=== PATIENT | male | born 1960 | race Caucasian/White ===

== ENCOUNTER 2018-05-25 07:22 | Day surgery (SDC) | payer OTHER ==
[~2018-05-25] VITALS: Ht 172.7 cm; Wt 113.6 kg
[2018-05-25] VITALS (7 sets, daily range): BP systolic 116–149; BP diastolic 49–67; Ht 172.7 cm; Wt 113.6 kg
--- NOTE | ~2018-05-25 | HP ---
PATIENT: KIANA KUNZ MEDICAL RECORD: [id number] ACCOUNT: [id number] LOCATION:[id number] : 62 ADMISSION DATE: 05/25/18 PCP: HAYDEN DONG MD HISTORY AND PHYSICAL EXAMINATION PREOPERATIVE HISTORY AND PHYSICAL HISTORY OF PRESENT ILLNESS: Mr. Kunz is 57 years old. He has been having recurrent infections in the right submandibular gland for years. He has been set up for surgery elsewhere previously, but did not have that done. He is being admitted for a right submandibular gland excision. PAST MEDICAL HISTORY: Includes diabetes, hypertension, and coronary artery disease. PAST SURGICAL HISTORY: Includes CABG, stents, laparoscopic cholecystectomy. CURRENT MEDICATIONS: Citalopram, gabapentin, metformin, metoprolol, Singulair, potassium, ramipril, triamterene, Farxiga. Aspirin has been held. ALLERGIES: PHENOBARBITAL AND PENICILLIN. PHYSICAL EXAMINATION: GENERAL: Healthy-appearing, developmentally normal. FACE: Normal, symmetric, no lesions. EYES: Sclerae and conjunctivae are normal. EARS: Both ears have small central TM perforations, clean, dry, stable. NOSE: No mass, polyps or drainage. ORAL CAVITY AND OROPHARYNX: Tongue protrudes in midline. Pharynx normal. NECK: No masses, no adenopathy. Slight enlargement of the right submandibular gland. Floor of mouth is normal. CT shows a 3 mm stone in the proximal duct. NECK: No masses, no adenopathy. CHEST: Clear. CARDIOVASCULAR: Regular rate and rhythm, no murmur. EXTREMITIES: Normal. IMPRESSION: Chronic right submandibular sialadenitis and sialolithiasis. PLAN: Right submandibular gland excision. TRANSINT:[id number] Voice Confirmation ID: [id number] DOCUMENT ID: [id number] TRACY LYNN MD at 1814 CC: [id number] DICTATION DATE: 05/21/18 1402 PROGRAMS ASSISTANT: 05/21/18 14[id number] [place] [address]
--- NOTE | ~2018-05-25 | OP ---
PATIENT NAME: KIANA ACOSTA MEDICAL RECORD: [id number] :62 LOCATION: D.2224 ADMISSION DATE: SURGEON: GOPAL CONNER MD DATE OF OPERATION: 05/25/2018 PREOPERATIVE DIAGNOSES: Right submandibular sialadenitis and right submandibular sialolithiasis. POSTOPERATIVE DIAGNOSES: Right submandibular sialadenitis and right submandibular sialolithiasis. PROCEDURE: Right submandibular gland excision. SURGEON: Gopal Conner MD ANESTHESIA: General orotracheal. COMPLICATIONS: None. DISPOSITION: Recovery, stable. SPECIMENS: A single J-P through a separate stab incision in the neck. DESCRIPTION OF PROCEDURE: He was brought to the operating room, placed in the supine position, and sedated and intubated by anesthesia. Head was turned to the left. Right neck was prepped and draped in the usual sterile fashion. The area of incision over 3 cm below the edge of the mandible was injected with 1 cc of 1% lidocaine with 1:100,000 epinephrine. A horizontal incision was made through the skin. This was taken down the platysma. The incision was stepped down lower in the platysma and the platysma was divided with cautery and then a flap was elevated superiorly, exposing the most inferior portion of the submandibular gland. This was then dissected posteriorly and anteriorly and then blunt dissection exposed the gland. Marginal branch of the facial nerve was identified and it was rolled superiorly as the fascia was dissected off of the gland superiorly. I then dissected inferiorly, exposing the posterior belly of the digastric and the anterior belly of the digastric. The gland was lifted laterally. The facial artery was exposed posteriorly. This was divided and tied with 2-0 ties to free up the posterior gland. The [place] was then retracted anteriorly to expose the floor of the mouth. Then, the gland was dissected off of the inferior portion of the mandible to expose lingual nerve and submandibular ganglion on the duct. This was all dissected free. Some veins were ligated. The submandibular gland was divided right above the submandibular ganglion, which was tied with a 2-0 silk tie, allowing the lingual nerve to retract superiorly. Then, the duct was carefully examined and no evidence of a stone in the duct. It was divided and the gland was removed. This was sent for specimen. The area was carefully inspected. It was irrigated, was completely clean and dry. A J-P drain was placed through a separate stab incision inferior to the wound. The platysma layer was closed with interrupted 3-0 Vicryl. The skin was closed with running subcuticular 5-0 Prolene. Steri-Strips and Mastisol were applied. He was awakened, extubated, and transported to recovery in good condition. No complications. TRANSINT:[id number] Voice Confirmation ID: [id number] DOCUMENT ID: [id number] OPERATIVE REPORT [id number] KIANA ACOSTA, GOPAL MCNAIR at 1217 CC: [id number] DICTATION DATE: 05/25/18 1446 HAND I THERMAL CUTTER: 05/25/[address] [facility] [address] [place] [address]
[~2018-05-25 07:22] MED LIST: ALTACE10 MG PO; ASPIRIN EC325 M1 PO; CLARITIN 10 MG10 MG PO; CO Q-1030 MG; DOXYCYCLINE HY100 M2 PO; GLUCOPHAGE500 MG PO; K-DUR20 MEQ PO; LASIX20 MG PO; LIPITOR20 MG PO; LOPRESSOR50 MG PO; MULTI-DAY VITAM1 TAB; NORCO 10/325 TA1 TA1 PO; PLAVIX75 MG PO; SINGULAIR10 MG; TOPROL XL50 MG PO; WELLBUTRIN SR150 MG
[2018-05-25 07:57] LABS: CALC OSMOLALITY 281 mosm/kg (275-300); CALCIUM 8.5 mg/dL (8.5-10.1); CARBON DIOXIDE 25.8 mmol/L (21.0-32.0); CHLORIDE - SERUM 102 mmol/L (98-107); CREATININE - SERUM 0.7 mg/dL (0.6-1.3); GLUCOSE 157 mg/dL (74-106); POTASSIUM - SERUM 3.4 mmol/L (3.5-5.1); SODIUM 139 mmol/L (136-145); UREA NITROGEN 15 mg/dL (7-18); eGFR NON AFRICAN AMERICAN > 90 mL/min (90-120)
[2018-05-25 08:12] LABS: HEMOGLOBIN 14.2 g/dL (13.5-17.5); MCH 28.4 pg (26.0-34.0); RDW 15.6 % (11.5-14.5); WBC 4.4 10x3/uL (4.8-10.8)
[2018-05-25 08:13] LABS: PLATELET COUNT 40 10x3/uL (130-400)
[2018-05-25] MEDS ORDERED: FARXIGA10 MG PO (08:43)
[2018-05-25] MEDS ORDERED: HYDROCHLOROTHIA25 MG (08:45)
[2018-05-25] MEDS ORDERED: LEXAPRO10 MG PO (08:45)
[2018-05-25] MEDS ORDERED: NEURONTIN 300300 MG PO (08:46)
[2018-05-25] MEDS ORDERED: REQUIP1 MG PO (09:26)
[2018-05-25 16:58] LABS: BASOPHILS 0.2 % (0-2); EOSINOPHILS 1.5 % (0-7); HEMATOCRIT 42.1 % (42.0-54.0); IMMATURE GRANULOCYTES 0.4 % (0-5); LYMPHOCYTES 8.6 % (15-50); MCH 28.6 pg (26.0-34.0); MCHC 33.3 g/dL (31.0-37.0); MCV 86.1 fL (80.0-100.0); MONOCYTES 7.5 % (2-11); NEUTROPHILS 81.8 % (40-80); RBC 4.89 10x6/uL (4.20-6.10); RDW 15.5 % (11.5-14.5); WBC 5.2 10x3/uL (4.8-10.8)
[2018-05-25 17:40] LABS: PLATELET COUNT 40 10x3/uL (130-400)
[2018-05-26 00:52] VITALS: BP 115/61
[2018-05-26 05:57] VITALS: BP 134/52
[2018-05-26 08:15] VITALS: BP 186/99
[2018-05-26 08:46] VITALS: BP 135/60
[2018-05-26] MEDS ORDERED: KEFLEX500 MG PO (12:15)
[2018-05-26] MEDS ORDERED: HYDROCODON-ACE1 EAC7 PO (12:43)
[2018-05-26 13:20] LABS: BASOPHILS 0.2 % (0-2); EOSINOPHILS 2.4 % (0-7); HEMATOCRIT 41.6 % (42.0-54.0); HEMOGLOBIN 13.8 g/dL (13.5-17.5); IMMATURE GRANULOCYTES 0.4 % (0-5); LYMPHOCYTES 13.7 % (15-50); MCH 28.8 pg (26.0-34.0); MCHC 33.2 g/dL (31.0-37.0); MCV 86.8 fL (80.0-100.0); MONOCYTES 10.4 % (2-11); NEUTROPHILS 72.9 % (40-80); RBC 4.79 10x6/uL (4.20-6.10); RDW 15.8 % (11.5-14.5); WBC 4.6 10x3/uL (4.8-10.8)
[2018-05-26 13:25] VITALS: BP 156/85
[2018-05-26 13:47] LABS: PLATELET COUNT 45 10x3/uL (130-400)
== END 2018-05-26 13:25 | disposition home or self-care (01) ==
LOC: D.OPS 07:22 → D.PAN 09:45 → D.OPS 12:15 → D.PAN 12:15 → D.MS 15:25 → D.OPS 05-26 13:25
PROVIDERS: Anesthesiology; Legal Medicine
DX: K11.20 Sialoadenitis, unspecified (principal); K11.5 Sialolithiasis; E11.9 Type 2 diabetes mellitus without complications; I10 Essential (primary) hypertension; I25.10 Atherosclerotic heart disease of native coronary artery without angina pectoris; Z95.1 Presence of aortocoronary bypass graft; Z95.5 Presence of coronary angioplasty implant and graft; Z79.84 Long term (current) use of oral hypoglycemic drugs; Z79.82 Long term (current) use of aspirin; Z79.899 Other long term (current) drug therapy; Z88.0 Allergy status to penicillin; Z88.8 Allergy status to other drugs, medicaments and biological substances

== ENCOUNTER → 2018-12-14 08:19 | Outpatient (CLI) | payer OTHER ==
[2018-05-25 16:52] VITALS: BMI 38.1
[~2018-12-14 08:19] MED LIST changes: +FARXIGA10 MG PO; +HYDROCHLOROTHIA25 MG; +HYDROCODON-ACE1 EAC7 PO; +KEFLEX500 MG PO; +LEXAPRO10 MG PO; +NEURONTIN 300300 MG PO; +REQUIP1 MG PO
== END | disposition home or self-care (01) ==
LOC: D.NM 08:19
PROVIDERS: ATTEND Internal Medicine Cardiovascular Disease
DX: I25.10 Atherosclerotic heart disease of native coronary artery without angina pectoris (principal)

== ENCOUNTER 2018-12-17 07:17 | Outpatient (CLI) | payer OTHER ==
[~2018-12-17] VITALS: Ht 172.7 cm; Wt 125.5 kg
[2018-12-17 08:10] VITALS: BP 137/56; Ht 172.7 cm; Wt 125.5 kg
[2018-12-17 08:10] LABS: HEMATOCRIT 27.3 % (42.0-54.0); HEMOGLOBIN 8.3 g/dL (13.5-17.5); MCH 24.3 pg (26.0-34.0); MCHC 30.4 g/dL (31.0-37.0); MCV 79.8 fL (80.0-100.0); PLATELET COUNT 52 10x3/uL (130-400); RBC 3.42 10x6/uL (4.20-6.10); RDW 16.6 % (11.5-14.5)
[2018-12-17 08:20] LABS: CALC OSMOLALITY 290 mosm/kg (275-300); CALCIUM 8.3 mg/dL (8.5-10.1); CARBON DIOXIDE 24.7 mmol/L (21.0-32.0); CHLORIDE - SERUM 109 mmol/L (98-107); CREATININE - SERUM 0.6 mg/dL (0.6-1.3); GLUCOSE 180 mg/dL (74-106); POTASSIUM - SERUM 3.6 mmol/L (3.5-5.1); SODIUM 143 mmol/L (136-145); UREA NITROGEN 15 mg/dL (7-18); eGFR NON AFRICAN AMERICAN > 90 mL/min (90-120)
[2018-12-17 08:33] LABS: WBC 1.8 10x3/uL (4.8-10.8)
[2018-12-17 08:50] LABS: EOSINOPHILS 1 % (0-7); LYMPHOCYTES 31 % (15-50); MONOCYTES 6 % (2-11); NEUTROPHILS 62 % (40-80); PLATELET ESTIMATE DECREASED
[2018-12-17 08:51] LABS: HYPOCHROMASIA OCC
--- NOTE | 2018-12-17 10:00 | NUR ---
DR HAYNES CALLED AND DUE TO ABNORMAL LABS. 1020 DR HAYNES IN ROOM AND TALKED WITH PT AND REGARDING PLAN OF CARE. ORDERS RECEIVED FOR ADD'L BLOOD WORK. 1045 LAB HERE AND BLOOD WORK DRAWN, PT DISCHARGED AMBULATORY WITH
[2018-12-17 11:10] LABS: % SATURATION 3 % (15-55); IRON 13 ug/dl (35-150); TOTAL IRON BIND CAPACITY 329 ug/dl (260-445); UNSAT IRON BIND CAPACITY 316 ug/dl (150-375)
[2018-12-17 11:23] LABS: ALBUMIN 3.7 g/dL (3.4-5.0); BILIRUBIN - DIRECT 0.2 mg/dL (0.00-0.30); BILIRUBIN - INDIRECT 0.81 mg/dL (0.00-1.00); BILIRUBIN - TOTAL 1.01 mg/dL (0.2-1.3); PROTEIN - SERUM 6.8 g/dL (6.4-8.2)
[2018-12-21 15:11] LABS: EHRLICHIA CHAFF IGG Negative (Neg:<1:64); EHRLICHIA CHAFF IGM Negative (Neg:<1:20); HGE IGG TITER Negative (Neg:<1:64); HGE IGM TITER Negative (Neg:<1:20)
[2018-12-21 18:07] LABS: RMSF IGM 1.17 index (0.00-0.89)
[2018-12-22 14:10] LABS: F. TULARENSIS - IGG Negative (Negative); F. TULARENSIS - IGM Negative (Negative)
[2018-12-22 17:08] LABS: FOLATE RBC - HEMATOCRIT 31.2 % (37.5-51.0)
== END 2018-12-17 10:50 | disposition home or self-care (01) ==
LOC: D.CATH 07:17
PROVIDERS: ATTEND Internal Medicine Cardiovascular Disease
DX: I25.119 Atherosclerotic heart disease of native coronary artery with unspecified angina pectoris (principal); Z95.1 Presence of aortocoronary bypass graft; R94.39 Abnormal result of other cardiovascular function study; I10 Essential (primary) hypertension; E66.9 Obesity, unspecified; Z01.812 Encounter for preprocedural laboratory examination